=== PATIENT | female | born 1960 | race Caucasian/White ===

== ENCOUNTER → 2017-05-26 | Outpatient (CLI) | payer BC | LOC: GMAL 16:39 | PROVIDERS: ATTEND Family Medicine | DX: D51.3 Other dietary vitamin B12 deficiency anemia (principal); R53.83 Other fatigue; E55.9 Vitamin D deficiency, unspecified ==

== ENCOUNTER → 2017-06-19 | Outpatient (CLI) | payer BC ==
--- NOTE | 2017-06-19 12:41 | US ---
EXAM DESCRIPTION: Abdomen,Complete CLINICAL HISTORY: ABDOMINAL PAIN COMPARISON: CT abdomen December 08, 2006 TECHNIQUE: Routine sonographic images of the abdomen were acquired and submitted for review. FINDINGS: Liver: Size- normal Echogenicity- normal Mass- no aggressive hepatic lesions are present. There is a benign cysts of the left lobe of the liver 2.4 cm. Bile ducts- intrahepatic and extrahepatic bile ducts not dilated with common bile duct measuring 4 mm. Gallbladder: normal Pancreas: head and body appear normal; tail obscured by bowel gas Spleen: normal Kidneys: normal Aorta & Inferior vena cava: visualized portions appear normal Ascites: none IMPRESSION: No ultrasound findings explain the patient's presenting symptoms of abdominal pain. Essentially unremarkable ultrasound of the abdomen. Electronically signed by: Jg Herr MD 06/19/2017 12:39 PM CDT
== END | disposition home or self-care (01) ==
LOC: US 11:24
PROVIDERS: ATTEND Family Medicine
DX: R10.84 Generalized abdominal pain (principal)

== ENCOUNTER → 2017-09-23 | Outpatient (CLI) | payer BC | END | disposition home or self-care (01) | LOC: GMAL 12:02 | PROVIDERS: ATTEND Family Medicine | DX: E03.8 Other specified hypothyroidism (principal); E11.9 Type 2 diabetes mellitus without complications; R25.2 Cramp and spasm; R63.4 Abnormal weight loss ==

== ENCOUNTER → 2017-11-11 | Outpatient (CLI) | payer BC | LOC: GMAL 14:32 | PROVIDERS: ATTEND Family Medicine | DX: E03.8 Other specified hypothyroidism (principal); E11.9 Type 2 diabetes mellitus without complications; R25.2 Cramp and spasm; R63.4 Abnormal weight loss ==

== ENCOUNTER → 2017-12-22 | Outpatient (CLI) | payer BC | END | disposition home or self-care (01) | LOC: GMAL 18:05 | PROVIDERS: ATTEND Family Medicine | DX: E03.9 Hypothyroidism, unspecified (principal) ==

== ENCOUNTER → 2018-01-27 | Outpatient (CLI) | payer BC | LOC: GMAJS 14:50 | PROVIDERS: ATTEND Physician Assistant | DX: M79.651 Pain in right thigh (principal); M79.652 Pain in left thigh ==

== ENCOUNTER → 2018-01-28 | Outpatient (CLI) | payer BC ==
--- NOTE | 2018-01-29 08:26 | US ---
Exam: Bilateral lower extremity arterial Doppler sonogram CLINICAL HISTORY: Symptoms TECHNIQUE: Doppler sonographic evaluation of the bilateral lower extremities was performed. FINDINGS: Right Submitted sonographic images reveal calcified plaque in the right superficial femoral and popliteal arteries. There is positive flow in the vessels below the knee. No significant stenosis is seen. The following peak systolic flow flow velocity measurements were obtained: Common femoral artery velocity equals 112 centimeters per second , triphasic. Superficial femoral artery velocity equals 73-94 centimeters per second , triphasic. Popliteal artery velocity equals 69 centimeters per second , triphasic. Peroneal artery velocity equals 45 centimeters per second , triphasic. Posterior tibial artery velocity equals 26 centimeters per second , biphasic. Dorsalis pedis artery velocity equals 48 centimeters per second , triphasic. Left Submitted sonographic images reveal normal widely patent left lower extremity arteries with multiphasic flow and no significant stenosis. Arteriosclerotic plaque is seen in the superficial femoral and popliteal arteries. The following peak systolic flow flow velocity measurements were obtained: Common femoral artery velocity equals 93 centimeters per second , triphasic. Superficial femoral artery velocity equals 67-1 04 centimeters per second , triphasic. Popliteal artery velocity equals 54 centimeters per second , triphasic. Peroneal artery velocity equals 60 centimeters per second , triphasic. Posterior tibial artery velocity equals 25 centimeters per second , biphasic. Dorsalis pedis artery velocity equals 22 centimeters per second , triphasic. IMPRESSION: Normal multiphasic flow in the lower extremity arteries with no significant stenosis. Electronically signed by: Vikash De Jesus MD 01/29/2018 8:25 AM CDT
== END ==
LOC: US 10:13
PROVIDERS: ATTEND Family Medicine
DX: M79.651 Pain in right thigh (principal); M79.652 Pain in left thigh

== ENCOUNTER → 2018-03-31 | Outpatient (CLI) | payer BC ==
--- NOTE | 2018-03-31 17:48 | RAD ---
EXAM DESCRIPTION: Chest,2 Views CLINICAL HISTORY: J84.10/E05.80/R60.9 COMPARISON: None TECHNIQUE: PA/lateral FINDINGS: There is no acute appearing cardiac or pulmonary abnormality. Heart size is prominent with normal pulmonary vascularity. No pleural effusion or pneumothorax. Lungs are clear with no consolidating infiltrate. Lateral view shows intact sternum and T-spine. IMPRESSION: No acute process is identified in the chest. Electronically signed by: Vikash De Jesus MD 03/31/2018 5:46 PM CDT
== END ==
LOC: LAB.O 10:20
PROVIDERS: ATTEND Internal Medicine Cardiovascular Disease
DX: J84.10 Pulmonary fibrosis, unspecified (principal); E05.80 Other thyrotoxicosis without thyrotoxic crisis or storm; R60.9 Edema, unspecified

== ENCOUNTER → 2018-05-22 | Outpatient (CLI) | payer BC | LOC: GMAL 12:04 | PROVIDERS: ATTEND Family Medicine | DX: E03.8 Other specified hypothyroidism (principal) ==

== ENCOUNTER → 2018-07-23 | Outpatient (CLI) | payer BC | LOC: GMAL 16:47 | PROVIDERS: ATTEND Family Medicine | DX: E03.8 Other specified hypothyroidism (principal) ==

== ENCOUNTER → 2018-11-04 | Outpatient (CLI) | payer BC | LOC: GMAL 14:28 | PROVIDERS: ATTEND Family Medicine | DX: E03.8 Other specified hypothyroidism (principal) ==